=== PATIENT | female | born 2005 | race Caucasian/White ===

== ENCOUNTER → 2024-04-14 13:29 | Outpatient (REF) | payer BC, SELFPAY | LOC: RAD 13:29 | PROVIDERS: ATTENDING PHYSICIAN Physician Assistant Medical | DX: S83.92XA Sprain of unspecified site of left knee, initial encounter (principal) | CPT/HCPCS: 73564 ==

== ENCOUNTER → 2024-07-25 13:10 | Outpatient (REF) | payer BC, SELFPAY | LOC: REG 13:10 | PROVIDERS: ATTENDING PHYSICIAN Physician Assistant Medical | DX: M25.532 Pain in left wrist (principal) | CPT/HCPCS: 73110 ==